=== PATIENT | female | born 1995 | race Caucasian/White ===

== ENCOUNTER → 2020-05-23 09:54 | Outpatient (CLI) | payer OTHER, SELFPAY ==
[2020-05-23 10:20] LABS: COVID19 -Nasal RAPID Negative (Negative)
== END ==
PROVIDERS: Visit Provider Physician Assistant
DX: J02.9 Acute pharyngitis, unspecified (principal); Z20.822 Contact with and (suspected) exposure to COVID-19
CPT/HCPCS: 87070; 87635

== ENCOUNTER → 2020-09-02 17:06 | Outpatient (CLI) | payer OTHER, SELFPAY ==
[2020-09-02 17:28] LABS: COVID19 -Nasal RAPID Negative (Negative)
== END ==
PROVIDERS: Referring Provider Physician Assistant; Visit Provider Physician Assistant
DX: Z20.822 Contact with and (suspected) exposure to COVID-19 (principal); J02.9 Acute pharyngitis, unspecified; R51.9 Headache, unspecified; R53.83 Other fatigue
CPT/HCPCS: 87635

== ENCOUNTER → 2021-02-20 12:47 | Outpatient (CLI) | payer OTHER, SELFPAY ==
[2021-02-20 13:42] LABS: COVID19 -Nasal RAPID POSITIVE (Negative)
== END ==
PROVIDERS: Visit Provider Nurse Practitioner Critical Care Medicine
DX: Z20.822 Contact with and (suspected) exposure to COVID-19 (principal)
CPT/HCPCS: 87635